=== PATIENT | male | born 1965 | race Caucasian/White ===

== ENCOUNTER 2017-07-02 17:02 | Inpatient (IN) | payer OTHER ==
[~2017-07-02 17:02] MED LIST: THIAMINE 100 MG TAB PO SCH
[2017-07-02] MEDS ORDERED: LORazepam 2 MG/ML INJ IV STA ×2 (17:32→19:45)
[2017-07-02] MEDS ORDERED: SODIUM CHLORIDE 0.9% 1,000 ML IV STA ×2 (17:32)
[2017-07-02 17:56] LABS: ALT 57 U/L (21-72); AST 91 U/L (17-59); Alkaline Phosphatase 115 U/L (38-126); Amylase 57 U/L (30-110); Anion Gap 8 mmol/L; Blood Urea Nitrogen 18 mg/dL (9-20); Calcium 9.8 mg/dL (8.4-10.2); Carbon Dioxide 27 mmol/L (22-30); Chloride 102 mmol/L (98-107); Glucose 115 mg/dL (74-99); Non-African American GFR(MDRD) >60 (>60 ml/min/1.73 sqM); Sodium 137 mmol/L (137-145); Total Bilirubin 1.3 mg/dL (0.2-1.3); Total Protein 6.2 g/dL (6.3-8.2)
[2017-07-02 18:00] LABS: Basophils % (A) 1 %; CH 33.9; Eosinophils % (A) 2 %; HCT 39.6 % (39.0-53.0); HDW 2.32; HGB 13.8 gm/dL (13.0-17.5); Large Platelets Flag Slight; Luc # (Auto) 0.07; Luc % (Auto) 2; Lymphocytes % (A) 35 %; MCH 34.8 pg (25.0-35.0); MCHC 34.9 g/dL (31.0-37.0); Mean Platelet Volume 10.9; Monocytes # (A) 0.2 k/uL (0-1.0); Monocytes % (A) 6 %; Neutrophils # (A) 1.5 k/uL (1.3-7.7); Neutrophils % (A) 55 %; RBC 3.96 m/uL (4.30-5.90); RDW 13.3 % (11.5-15.5); WBC 2.8 k/uL (3.8-10.6); WBC (Perox) 2.85
[2017-07-02 18:03] LABS: Prothrombin Time 10.2 sec (9.0-12.0)
[2017-07-02] MEDS ORDERED: POTASSIUM CHLORIDE ER 20 MEQ TAB.ER PO STA (18:27)
--- NOTE | 2017-07-02 19:45 | ED ---
General Adult HPI - General Chief complaint: Alcohol Stated complaint: Detox Time Seen by Provider: 07/02/17 17:32 Source: EMS Mode of arrival: EMS Limitations: language barrier - History of Present Illness Initial comments: This 51-year-old male presents with alcohol withdrawal. He presents from [facility]. They apparently sent him here has they were giving him 1-2 mg of Ativan and this was not adequately controlling his withdrawal symptoms. He apparently was very shaky and unable to ambulate. The patient does not speak very good Yi so there may be a degree of communication barrier. He also may be confused at times. The nurse, however, at times states that he seems to be making decent sense and he does seem to be speaking Yi to them fairly well at times. The patient does not have any complaints at current time. Records relate that he has not had anything to drink in the past 3 days. - Related Data Home Medications Medication Instructions Recorded Confirmed Acetaminophen [Tylenol] 650 mg PO Q4H PRN 07/02/17 07/02/17 Chlorpheniramine Maleate 4 mg PO Q4H PRN 07/02/17 07/02/17 [Chlor-Trimeton] Ibuprofen [Motrin] 600 mg PO Q6HR PRN 07/02/17 07/02/17 LORazepam ORAL CONC [Ativan 1 mg PO ONCE PRN 07/02/17 07/02/17 Intensol] LORazepam ORAL CONC [Ativan 2 mg IM ONCE PRN 07/02/17 07/02/17 Intensol] Multivitamins, Thera [Multivitamin 1 tab PO DAILY 07/02/17 07/02/17 (formulary)] Thiamine [Vitamin B-1] 100 mg PO DAILY 07/02/17 07/02/17 cloNIDine HCL [Catapres] 0.1 - 0.3 mg PO Q4H PRN 07/02/17 07/02/17 traZODone HCL 50 - 150 mg PO HS 07/02/17 07/02/17 Allergies Allergy/AdvReac Type Severity Reaction Status Date / Time No Known Allergies Allergy Verified 07/02/17 17:17 Review of Systems ROS Statement: Those systems with pertinent positive or pertinent negative responses have been documented in the HPI. ROS Other: All systems not noted in ROS Statement are negative. Past Medical History Past Medical History: No Reported History History of Any Multi-Drug Resistant Organisms: None Reported Past Surgical History: No Surgical Hx Reported Past Psychological History: No Psychological Hx Reported Smoking Status: Never smoker Past Alcohol Use History: None Reported Past Drug Use History: None Reported General Exam - General Exam Comments Initial Comments: GENERAL: The patient is well nourished and well hydrated. VITAL SIGNS: Heart rate, blood pressure, respiratory rate reviewed as recorded in nurse's notes. EYES: Pupils are round and reactive. Extraocular movements are intact. No conjunctival / lid redness or swelling. ENT: No external evidence of injury, swelling, or ecchymosis. Airway is patent. Throat is clear. NECK: Nontender. No swelling or evidence of injury. No subcutaneous emphysema. Trachea is midline. No thyroid mass. HEART: Regular rate and rhythm. Good peripheral pulses. LUNGS/CHEST: Breath sounds clear and equal bilaterally. No rales, rhonchi, or wheezes. No ecchymosis, subcutaneous emphysema, or tenderness. ABDOMEN: Abdomen soft without tenderness. No palpable masses or organomegaly. No peritoneal signs. No abdominal wall swelling or ecchymosis. EXTREMITIES: No extremity tenderness. Normal muscle tone and function. No thoracolumbar tenderness. NEUROLOGIC: Sensation is grossly intact. Cranial nerve exam reveals face is symmetrical, tongue is midline, speech is clear. The patient is fairly shaky with extremities. SKIN: No abrasions or ecchymosis is noted. No induration or masses noted. PSYCHIATRIC: Alert and in no apparent distress. Limitations: language barrier Course Vital Signs 07/02/17 07/02/17 17:09 17:50 Temperature 98.2 F Pulse Rate 76 71 Respiratory 18 18 Rate Blood Pressure 160/99 162/112 O2 Sat by Pulse 98 98 Oximetry Medical Decision Making - Medical Decision Making The patient was seen and examined. All diagnostics were reviewed. The EKG shows a normal sinus rhythm at a rate of 71. There is some nonspecific ST-T wave changes noted primarily in the inferolateral leads. The NH interval is 144 , the QRS duration is 88, and the QTc interval is 471. The patient's lab reveals a thrombocytopenia as well as a hypokalemia. He does receive an IV with 2 mg of Ativan intravenously given. He does seem somewhat confused at times. An additional 2 mg of Ativan is ordered. It is felt as well he may be having some delirium tremens. The case is discussed with internal medicine and they're agreeable to admission. - Lab Data Result diagrams: 07/02/17 17:30 07/02/17 17:30 Lab Results 07/02/17 07/02/17 07/02/17 Range/Units 17:30 17:30 17:30 WBC 2.8 L (3.8-10.6) k/uL RBC 3.96 L (4.30-5.90) m/uL Hgb 13.8 (13.0-17.5) gm/dL Hct 39.6 (39.0-53.0) % MCV 100.0 (80.0-100.0) fL MCH 34.8 (25.0-35.0) pg MCHC 34.9 (31.0-37.0) g/dL RDW 13.3 (11.5-15.5) % Plt Count 38 L* (150-450) k/uL Neutrophils % 55 % Lymphocytes % 35 % Monocytes % 6 % Eosinophils % 2 % Basophils % 1 % Neutrophils # 1.5 (1.3-7.7) k/uL Lymphocytes # 1.0 (1.0-4.8) k/uL Monocytes # 0.2 (0-1.0) k/uL Eosinophils # 0.0 (0-0.7) k/uL Basophils # 0.0 (0-0.2) k/uL PT 10.2 (9.0-12.0) sec INR 1.0 (<1.2) Sodium 137 (137-145) mmol/L Potassium 3.0 L* (3.5-5.1) mmol/L Chloride 102 (98-107) mmol/L Carbon Dioxide 27 (22-30) mmol/L Anion Gap 8 mmol/L BUN 18 (9-20) mg/dL Creatinine 0.50 L (0.66-1.25) mg/dL Est GFR (MDRD) Af Amer >60 (>60 ml/min/1.73 sqM) Est GFR (MDRD) Non-Af >60 (>60 ml/min/1.73 sqM) Glucose 115 H (74-99) mg/dL Calcium 9.8 (8.4-10.2) mg/dL Total Bilirubin 1.3 (0.2-1.3) mg/dL AST 91 H (17-59) U/L ALT 57 (21-72) U/L Alkaline Phosphatase 115 (38-126) U/L Total Protein 6.2 L (6.3-8.2) g/dL Albumin 3.8 (3.5-5.0) g/dL Amylase 57 (30-110) U/L Lipase 308 H (23-300) U/L Disposition Clinical Impression: Alcohol withdrawal delirium, Delirium tremens, Alcohol withdrawal syndrome, Thrombocytopenia, Hypokalemia Disposition: ADMITTED IP TO THIS HOSP Condition: Fair Time of Disposition: 19:50 Decision Date: 07/02/17 Decision Time: 19:50
[2017-07-02] MEDS ORDERED: THIAMINE 100 MG/ML 2 ML VIAL IM STA (19:51)
[2017-07-02] MEDS ORDERED: LORazepam 2 MG/ML INJ IV PRN (19:51)
[2017-07-02] MEDS ORDERED: NALOXONE 0.4 MG/ML 1 ML VIAL IV PRN (19:51)
[2017-07-02] MEDS ORDERED: ONDANSETRON 4 MG/2 ML VIAL IVP PRN (19:51)
[2017-07-02] MEDS ORDERED: ACETAMINOPHEN TAB 325 MG TAB PO PRN (19:54)
[2017-07-02] MEDS ORDERED: diphenhydrAMINE 25 MG CAP PO PRN (19:54)
[2017-07-02] MEDS: cloNIDine HCL 0.1 MG TAB PO PRN (20:17)
[2017-07-02] MEDS: traZODone HCL 50 MG TAB PO SCH (21:22)
[2017-07-02] MEDS: LORazepam 2 MG/ML INJ IV PRN (23:49)
[2017-07-03] MEDS: LORazepam 2 MG/ML INJ IV PRN ×5 (03:03→21:01)
[2017-07-03] MEDS: ENOXAPARIN 40 MG/0.4 ML SYRINGE SQ SCH (08:01)
[2017-07-03] MEDS: PANTOPRAZOLE 40 MG/10 ML VIAL IV SCH (08:02)
[2017-07-03 08:50] LABS: Basophils % (A) 0 %; CH 33.3; CHCM 32.7; Eosinophils % (A) 2 %; HCT 41.8 % (39.0-53.0); HDW 2.39; HGB 14.1 gm/dL (13.0-17.5); Luc # (Auto) 0.08; Luc % (Auto) 4; Lymphocytes # (A) 0.7 k/uL (1.0-4.8); Lymphocytes % (A) 34 %; MCH 34.4 pg (25.0-35.0); MCHC 33.7 g/dL (31.0-37.0); MCV 102.2 fL (80.0-100.0); Macrocytosis Slight; Mean Platelet Volume 9.8; Monocytes # (A) 0.2 k/uL (0-1.0); Monocytes % (A) 7 %; Neutrophils # (A) 1.2 k/uL (1.3-7.7); Neutrophils % (A) 54 %; RBC 4.09 m/uL (4.30-5.90); RDW 13.1 % (11.5-15.5); WBC 2.2 k/uL (3.8-10.6)
[2017-07-03 08:55] LABS: Anion Gap 12 mmol/L; Blood Urea Nitrogen 9 mg/dL (9-20); Calcium 9.4 mg/dL (8.4-10.2); Carbon Dioxide 24 mmol/L (22-30); Chloride 103 mmol/L (98-107); Glucose 80 mg/dL (74-99); Non-African American GFR(MDRD) >60 (>60 ml/min/1.73 sqM); Potassium 3.4 mmol/L (3.5-5.1); Sodium 139 mmol/L (137-145)
[2017-07-03] MEDS: THIAMINE 100 MG TAB PO SCH ×2 (11:55→17:44)
[2017-07-03] MEDS: traZODone HCL 50 MG TAB PO SCH (20:54)
--- NOTE | 2017-07-03 23:16 | P.HPIM ---
History of Present Illness H&P Date: 07/03/17 Chief Complaint: Acute alcohol withdrawal symptoms This 51-year-old male with a known history of alcohol abuse presents ER with alcohol withdrawal symptoms.. He presents from [facility]. They apparently sent him here has they were giving him 1-2 mg of Ativan and this was not adequately controlling his withdrawal symptoms. He apparently was very shaky and unable to ambulate. The patient does not speak very good Pashto so there may be a degree of communication barrier. He is also confused at times. The patient does not have any complaints at current time. Records relate that he has not had anything to drink in the past 3 days. Complete history could not be obtained from the patient. Review of systems could not be obtained from the patient Past Medical History Past Medical History: No Reported History Additional Past Medical History / Comment(s): restless leg syndrome, ETOH- drinks fifth of vodka per day History of Any Multi-Drug Resistant Organisms: None Reported Past Surgical History: No Surgical Hx Reported Past Anesthesia/Blood Transfusion Reactions: No Reported Reaction Past Psychological History: No Psychological Hx Reported Smoking Status: Current every day smoker Past Alcohol Use History: Daily Past Drug Use History: None Reported - Past Family History Mother Family Medical History: No Reported History Medications and Allergies Home Medications Medication Instructions Recorded Confirmed Type Acetaminophen [Tylenol] 650 mg PO Q4H PRN 07/02/17 07/02/17 History Chlorpheniramine Maleate 4 mg PO Q4H PRN 07/02/17 07/02/17 History [Chlor-Trimeton] Ibuprofen [Motrin] 600 mg PO Q6HR PRN 07/02/17 07/02/17 History LORazepam ORAL CONC [Ativan 1 mg PO ONCE PRN 07/02/17 07/02/17 History Intensol] LORazepam ORAL CONC [Ativan 2 mg IM ONCE PRN 07/02/17 07/02/17 History Intensol] Multivitamins, Thera [Multivitamin 1 tab PO DAILY 07/02/17 07/02/17 History (formulary)] Thiamine [Vitamin B-1] 100 mg PO DAILY 07/02/17 07/02/17 History cloNIDine HCL [Catapres] 0.1 - 0.3 mg PO Q4H PRN 07/02/17 07/02/17 History traZODone HCL 50 - 150 mg PO HS 07/02/17 07/02/17 History Allergies Allergy/AdvReac Type Severity Reaction Status Date / Time No Known Allergies Allergy Verified 07/02/17 17:17 Physical Exam Vitals: Vital Signs Temp Pulse Pulse Resp BP BP Pulse Ox 07/03/17 07:00 98.2 F 68 16 154/104 98 07/02/17 22:00 96.7 F L 70 20 140/107 98 07/02/17 20:38 98.0 F 72 18 159/99 99 07/02/17 20:09 98.1 F 76 18 159/109 97 07/02/17 19:00 74 20 100 07/02/17 18:00 98.0 F 71 16 158/100 99 07/02/17 17:50 71 18 162/112 98 07/02/17 17:09 98.2 F 76 18 160/99 98 Intake and Output 07/02/17 07/03/17 07/03/17 22:59 06:59 14:59 Intake Total 100 100 Balance 100 100 Intake: Oral 100 100 Other: Voiding Method Urinal # Voids 2 1 Weight 58.967 kg 67.5 kg PHYSICAL EXAMINATION: Patient is lying in the bed comfortably, no acute distress, confused and wobbling. HEENT: Normocephalic. Neck is supple. Pupils reactive. Nostrils clear. Oral cavity is moist. Ears reveal no drainage. Neck reveals no JVD, carotid bruits, or thyromegaly. CHEST EXAMINATION: Trachea is central. Symmetrical expansion. Lung william clear to auscultation and percussion. CARDIAC: Normal S1, S2 with no gallops. No murmurs ABDOMEN: Soft. Bowel sounds normal. No organomegaly. No abdominal bruits. Extremities reveal no edema. No clubbing or cyanosis Neurologically awake, alert. Confused. No focal neurological deficit noted. Skin: no rash or skin lesions Musculoskeletal: no joint swelling or deformity. Results CBC & Chem 7: 07/03/17 07:53 07/03/17 07:53 Labs: Abnormal Lab Results - Last 24 Hours (Table) 07/02/17 07/02/17 07/03/17 Range/Units 17:30 17:30 07:53 WBC 2.8 L 2.2 L (3.8-10.6) k/uL RBC 3.96 L 4.09 L (4.30-5.90) m/uL MCV 102.2 H (80.0-100.0) fL Plt Count 38 L* 37 L* (150-450) k/uL Neutrophils # 1.2 L (1.3-7.7) k/uL Lymphocytes # 0.7 L (1.0-4.8) k/uL Potassium 3.0 L* (3.5-5.1) mmol/L Creatinine 0.50 L (0.66-1.25) mg/dL Glucose 115 H (74-99) mg/dL AST 91 H (17-59) U/L Total Protein 6.2 L (6.3-8.2) g/dL Lipase 308 H (23-300) U/L 07/03/17 Range/Units 07:53 WBC (3.8-10.6) k/uL RBC (4.30-5.90) m/uL MCV (80.0-100.0) fL Plt Count (150-450) k/uL Neutrophils # (1.3-7.7) k/uL Lymphocytes # (1.0-4.8) k/uL Potassium 3.4 L (3.5-5.1) mmol/L Creatinine 0.49 L (0.66-1.25) mg/dL Glucose (74-99) mg/dL AST (17-59) U/L Total Protein (6.3-8.2) g/dL Lipase (23-300) U/L Thrombosis Risk Factor Assmnt - DVT/VTE Prophylaxis DVT/VTE Prophylaxis: Mechanical Prophylaxis ordered - Choose All That Apply Any of the Below Risk Factors Present?: Yes Each Factor Represents 1 point: Age 41-60 years Other Risk Factors: No Other congenital or acquired thrombophilia - If yes, enter type in comment: No Thrombosis Risk Factor Assessment Total Risk Factor Score: 1 Thrombosis Risk Factor Assessment Level: Low Risk Assessment and Plan Plan: #1 acute alcohol withdrawal symptoms #2 alcohol abuse 1/5 of alcohol per day #3 neutropenia and thrombocytopenia due to alcohol abuse #4 severe hypokalemia. #5 mild pancreatitis acute. #6 DVT prophylaxis. SCDs due to thrombocytopenia less than 50 K Plan: Patient will be continued on IV hydration and continue with Ativan when necessary for withdrawal symptoms. Continue with thiamine and multivitamins and follow closely. Replace electrolytes. Continue with symptomatic management and further recommendations based on the clinical course. Time with Patient: Greater than 30
[2017-07-04] MEDS: LORazepam 2 MG/ML INJ IV PRN ×4 (02:23→21:21)
[2017-07-04] MEDS: ENOXAPARIN 40 MG/0.4 ML SYRINGE SQ SCH ×2 (07:38→07:39)
[2017-07-04] MEDS: PANTOPRAZOLE 40 MG/10 ML VIAL IV SCH (07:38)
[2017-07-04 09:46] LABS: Basophils % (A) 1 %; CH 33.5; CHCM 32.8; Eosinophils # (A) 0.1 k/uL (0-0.7); Eosinophils % (A) 3 %; HCT 43.4 % (39.0-53.0); HDW 2.46; HGB 14.4 gm/dL (13.0-17.5); Large Platelets Flag Slight; Luc # (Auto) 0.08; Luc % (Auto) 3; Lymphocytes # (A) 0.7 k/uL (1.0-4.8); Lymphocytes % (A) 29 %; MCH 34.1 pg (25.0-35.0); MCHC 33.3 g/dL (31.0-37.0); MCV 102.5 fL (80.0-100.0); Macrocytosis Slight; Mean Platelet Volume 10.6; Monocytes # (A) 0.2 k/uL (0-1.0); Monocytes % (A) 8 %; Neutrophils # (A) 1.4 k/uL (1.3-7.7); Neutrophils % (A) 57 %; RBC 4.23 m/uL (4.30-5.90); RDW 13.3 % (11.5-15.5); WBC 2.5 k/uL (3.8-10.6); WBC (Perox) 2.52
[2017-07-04 09:52] LABS: Anion Gap 21 mmol/L; Blood Urea Nitrogen 14 mg/dL (9-20); Calcium 9.5 mg/dL (8.4-10.2); Carbon Dioxide 17 mmol/L (22-30); Chloride 103 mmol/L (98-107); Glucose 73 mg/dL (74-99); Non-African American GFR(MDRD) >60 (>60 ml/min/1.73 sqM); Potassium 3.3 mmol/L (3.5-5.1); Sodium 141 mmol/L (137-145)
[2017-07-04] MEDS: THIAMINE 100 MG TAB PO SCH ×2 (11:15→17:33)
[2017-07-04] MEDS: traZODone HCL 50 MG TAB PO SCH (21:19)
--- NOTE | 2017-07-05 00:04 | P.PN ---
Subjective Principal diagnosis: Acute alcohol withdrawal symptoms This 51-year-old male with a known history of alcohol abuse presents ER with alcohol withdrawal symptoms.. He presents from [facility]. They apparently sent him here has they were giving him 1-2 mg of Ativan and this was not adequately controlling his withdrawal symptoms. He apparently was very shaky and unable to ambulate. The patient does not speak very good Martiniquais so there may be a degree of communication barrier. He is also confused at times. The patient does not have any complaints at current time. Records relate that he has not had anything to drink in the past 3 days. Complete history could not be obtained from the patient. Review of systems could not be obtained from the patient On 07/04/2017 Patient is more awake and oriented today. Patient was visited this morning and received Ativan IV. Patient is a poor historian due to language barrier. Overall clinically improved. No fever no chills. No complaints of chest pain or short of breath. Current medications reviewed. Objective - Vital Signs Vital signs: Vital Signs Temp 97.8 F 07/04/17 15:00 Pulse 68 07/04/17 15:00 Resp 20 07/04/17 15:00 BP 148/107 07/04/17 15:00 Pulse Ox 98 07/04/17 15:00 Intake & Output 07/04/17 07/04/17 07/05/17 06:59 18:59 06:59 Other: # Voids 1 1 1 - Exam Patient is lying in the bed comfortably, no acute distress, more oriented compared to yesterday. HEENT: Normocephalic. Neck is supple. Pupils reactive. Nostrils clear. Oral cavity is moist. Ears reveal no drainage. Neck reveals no JVD, carotid bruits, or thyromegaly. CHEST EXAMINATION: Trachea is central. Symmetrical expansion. Lung william clear to auscultation and percussion. CARDIAC: Normal S1, S2 with no gallops. No murmurs ABDOMEN: Soft. Bowel sounds normal. No organomegaly. No abdominal bruits. Extremities reveal no edema. No clubbing or cyanosis Neurologically awake, alert. . No focal neurological deficit noted. Patient does have essential tremors. Skin: no rash or skin lesions Musculoskeletal: no joint swelling or deformity - Labs CBC & Chem 7: 07/04/17 08:54 07/04/17 08:54 Labs: Abnormal Lab Results - Last 24 Hours (Table) 07/04/17 07/04/17 Range/Units 08:54 08:54 WBC 2.5 L (3.8-10.6) k/uL RBC 4.23 L (4.30-5.90) m/uL MCV 102.5 H (80.0-100.0) fL Plt Count 40 L* (150-450) k/uL Lymphocytes # 0.7 L (1.0-4.8) k/uL Potassium 3.3 L (3.5-5.1) mmol/L Carbon Dioxide 17 L (22-30) mmol/L Creatinine 0.59 L (0.66-1.25) mg/dL Glucose 73 L (74-99) mg/dL Assessment and Plan Plan: #1 acute alcohol withdrawal symptoms #2 severe alcohol abuse 1/5 of alcohol per day #3 neutropenia and thrombocytopenia due to alcohol abuse. improving #4 severe hypokalemia. #5 mild pancreatitis acute. #6 DVT prophylaxis. SCDs due to thrombocytopenia less than 50 K Plan: Patient will be continued on IV hydration and continue with Ativan when necessary for withdrawal symptoms. Continue with thiamine and multivitamins and follow closely. Replace electrolytes. Continue with symptomatic management and further recommendations based on the clinical course.
[2017-07-05] MEDS: LORazepam 2 MG/ML INJ IV PRN ×2 (03:01→09:50)
[2017-07-05] MEDS: PANTOPRAZOLE 40 MG TABLET PO SCH (09:09)
[2017-07-05] MEDS: ENOXAPARIN 40 MG/0.4 ML SYRINGE SQ SCH (09:09)
[2017-07-05] MEDS: cloNIDine HCL 0.1 MG TAB PO PRN (09:51)
[2017-07-05] MEDS: THIAMINE 100 MG TAB PO SCH ×2 (13:13→18:31)
[2017-07-05] MEDS: traZODone HCL 50 MG TAB PO SCH (20:47)
[2017-07-06] MEDS: LORazepam 2 MG/ML INJ IV PRN ×3 (03:49→14:41)
[2017-07-06] MEDS: cloNIDine HCL 0.1 MG TAB PO PRN (09:09)
[2017-07-06] MEDS: PANTOPRAZOLE 40 MG TABLET PO SCH (09:10)
[2017-07-06 09:11] LABS: Basophils % (A) 1 %; CH 33.8; CHCM 32.4; Eosinophils # (A) 0.1 k/uL (0-0.7); Eosinophils % (A) 3 %; HCT 43.3 % (39.0-53.0); HDW 2.49; HGB 14.3 gm/dL (13.0-17.5); Luc # (Auto) 0.12; Luc % (Auto) 4; Lymphocytes # (A) 1.1 k/uL (1.0-4.8); Lymphocytes % (A) 35 %; MCH 34.5 pg (25.0-35.0); MCV 104.5 fL (80.0-100.0); Macrocytosis Slight; Mean Platelet Volume 9.3; Monocytes # (A) 0.2 k/uL (0-1.0); Monocytes % (A) 7 %; Neutrophils # (A) 1.6 k/uL (1.3-7.7); Neutrophils % (A) 51 %; RBC 4.14 m/uL (4.30-5.90); RDW 13.1 % (11.5-15.5); WBC 3.1 k/uL (3.8-10.6); WBC (Perox) 3.15
[2017-07-06] MEDS: ENOXAPARIN 40 MG/0.4 ML SYRINGE SQ SCH (09:13)
[2017-07-06 09:29] LABS: Anion Gap 13 mmol/L; Blood Urea Nitrogen 22 mg/dL (9-20); Calcium 10.1 mg/dL (8.4-10.2); Carbon Dioxide 20 mmol/L (22-30); Chloride 107 mmol/L (98-107); Glucose 102 mg/dL (74-99); Non-African American GFR(MDRD) >60 (>60 ml/min/1.73 sqM); Potassium 3.3 mmol/L (3.5-5.1); Sodium 140 mmol/L (137-145)
[2017-07-06] MEDS: THIAMINE 100 MG TAB PO SCH ×2 (13:02→17:13)
[2017-07-06] MEDS ORDERED: cloNIDine 0.1 MG/24HR PATCH 1 PATCH PATCH TRANSDERM SCH (21:00)
[2017-07-06] MEDS: traZODone HCL 50 MG TAB PO SCH (21:10)
[2017-07-07] MEDS: PANTOPRAZOLE 40 MG TABLET PO SCH (10:00)
[2017-07-07] MEDS: ENOXAPARIN 40 MG/0.4 ML SYRINGE SQ SCH (10:00)
[2017-07-07] MEDS: THIAMINE 100 MG TAB PO SCH ×2 (10:00→18:18)
[2017-07-07] MEDS: NICOTINE 21MG/24HR PATCH TRANSDERM SCH (10:02)
[2017-07-07] MEDS: LORazepam 2 MG/ML INJ IV PRN (10:10)
[2017-07-07] MEDS: IBUPROFEN 600 MG TAB PO PRN ×2 (10:10→20:44)
[2017-07-07] MEDS: cloNIDine HCL 0.1 MG TAB PO PRN (15:23)
[2017-07-07] MEDS: traZODone HCL 50 MG TAB PO SCH (20:45)
--- NOTE | 2017-07-08 00:19 | P.PN ---
Subjective Principal diagnosis: Acute alcohol withdrawal symptoms This 51-year-old male with a known history of alcohol abuse presents ER with alcohol withdrawal symptoms.. He presents from [facility]. They apparently sent him here has they were giving him 1-2 mg of Ativan and this was not adequately controlling his withdrawal symptoms. He apparently was very shaky and unable to ambulate. The patient does not speak very good Mauritanian so there may be a degree of communication barrier. He is also confused at times. The patient does not have any complaints at current time. Records relate that he has not had anything to drink in the past 3 days. Complete history could not be obtained from the patient. Review of systems could not be obtained from the patient On 07/04/2017 Patient is more awake and oriented today. Patient was visited this morning and received Ativan IV. Patient is a poor historian due to language barrier. Overall clinically improved. No fever no chills. No complaints of chest pain or short of breath. 07/07/2017 Patient is awake and alert. Tolerating diet slowly. Still lethargic. Patient didn't require Ativan IV this morning. Otherwise frequency decreased. No fever no chills. No acute overnight issues. Current medications reviewed. Objective - Vital Signs Vital signs: Vital Signs Temp 98.6 F 07/07/17 14:47 Pulse 69 07/07/17 14:47 Resp 16 07/07/17 15:24 BP 152/99 07/07/17 14:47 Pulse Ox 97 07/07/17 14:47 Intake & Output 07/07/17 07/07/17 07/08/17 06:59 18:59 06:59 Intake Total 400 Output Total 975 Balance 400 -975 Intake: Oral 400 Output: Urine 975 Other: Voiding Method Diaper # Voids 2 1 # Bowel Movements 0 - Exam Patient is lying in the bed comfortably, no acute distress, more oriented compared to yesterday. HEENT: Normocephalic. Neck is supple. Pupils reactive. Nostrils clear. Oral cavity is moist. Ears reveal no drainage. Neck reveals no JVD, carotid bruits, or thyromegaly. CHEST EXAMINATION: Trachea is central. Symmetrical expansion. Lung william clear to auscultation and percussion. CARDIAC: Normal S1, S2 with no gallops. No murmurs ABDOMEN: Soft. Bowel sounds normal. No organomegaly. No abdominal bruits. Extremities reveal no edema. No clubbing or cyanosis Neurologically awake, alert. . No focal neurological deficit noted. Patient does have essential tremors. Skin: no rash or skin lesions Musculoskeletal: no joint swelling or deformity - Labs CBC & Chem 7: 07/06/17 08:46 07/06/17 08:46 Assessment and Plan Plan: #1 acute alcohol withdrawal symptoms #2 severe alcohol abuse 1/5 of alcohol per day #3 neutropenia and thrombocytopenia due to alcohol abuse. improving #4 severe hypokalemia. Replaced #5 mild pancreatitis acute. #6 DVT prophylaxis. SCDs due to thrombocytopenia less than 50 K Plan: Patient will be continued on IV hydration and continue with Ativan when necessary for withdrawal symptoms. Continue with thiamine and multivitamins and follow closely. Replace electrolytes. PT OT and increase oral intake. Continue with symptomatic management and further recommendations based on the clinical course.
[2017-07-08] MEDS: SODIUM CHLORIDE 0.9% 1,000 ML IV SCH ×3 (05:58→15:36)
[2017-07-08 09:49] LABS: Basophils % (A) 1 %; CH 35.2; CHCM 35.2; Eosinophils % (A) 2 %; HCT 39.6 % (39.0-53.0); HDW 2.56; HGB 13.4 gm/dL (13.0-17.5); Luc # (Auto) 0.05; Luc % (Auto) 2; Lymphocytes # (A) 0.7 k/uL (1.0-4.8); Lymphocytes % (A) 34 %; MCH 34.1 pg (25.0-35.0); MCHC 33.9 g/dL (31.0-37.0); MCV 100.6 fL (80.0-100.0); Mean Platelet Volume 9.5; Monocytes # (A) 0.2 k/uL (0-1.0); Monocytes % (A) 9 %; Neutrophils # (A) 1.1 k/uL (1.3-7.7); Neutrophils % (A) 52 %; RBC 3.94 m/uL (4.30-5.90); RDW 13.4 % (11.5-15.5); WBC 2.2 k/uL (3.8-10.6); WBC (Perox) 2.17
[2017-07-08 10:03] LABS: Anion Gap 7 mmol/L; Blood Urea Nitrogen 8 mg/dL (9-20); Calcium 9.3 mg/dL (8.4-10.2); Carbon Dioxide 25 mmol/L (22-30); Chloride 104 mmol/L (98-107); Glucose 145 mg/dL (74-99); Non-African American GFR(MDRD) >60 (>60 ml/min/1.73 sqM); Sodium 136 mmol/L (137-145)
[2017-07-08] MEDS: NICOTINE 21MG/24HR PATCH TRANSDERM SCH (10:06)
[2017-07-08] MEDS: ENOXAPARIN 40 MG/0.4 ML SYRINGE SQ SCH (10:06)
[2017-07-08] MEDS: PANTOPRAZOLE 40 MG TABLET PO SCH (10:06)
[2017-07-08 10:24] LABS: Potassium 2.7 mmol/L (3.5-5.1)
[2017-07-08] MEDS ORDERED: Potassium Replacement Protocol 1 EACH MISC MISCELLANE PRN (11:37)
[2017-07-08] MEDS ORDERED: POTASSIUM CHLORIDE ER 20 MEQ TAB.ER PO STA (11:40)
[2017-07-08] MEDS: THIAMINE 100 MG TAB PO SCH ×2 (12:04→16:28)
[2017-07-08] MEDS: POTASSIUM CHLORIDE 10 MEQ in WATER FOR INJECTION 1 100ML.BAG IVPB SCH ×3 (12:05→16:32)
--- NOTE | 2017-07-08 14:07 | XR ---
EXAMINATION TYPE: XR chest 2V DATE OF EXAM: 07/08/2017 COMPARISON: NONE TECHNIQUE: PA and lateral views submitted. HISTORY: ECF placement FINDINGS: The lungs are clear and there is no pneumothorax, pleural effusion, or focal pneumonia. Hypertrophi c and degenerative change spine IMPRESSION: 1. No acute process.
[2017-07-08] MEDS: traZODone HCL 50 MG TAB PO SCH (20:02)
[2017-07-08] MEDS: POTASSIUM CHLORIDE 10 MEQ, LIDOCAINE 2% INJ 10 MG in SODIUM CHLORIDE 0.9% 100 ML IVPB SCH ×2 (21:16→23:13)
--- NOTE | 2017-07-09 00:09 | P.PN ---
Subjective Principal diagnosis: Acute alcohol withdrawal symptoms This 51-year-old male with a known history of alcohol abuse presents ER with alcohol withdrawal symptoms.. He presents from [facility]. They apparently sent him here has they were giving him 1-2 mg of Ativan and this was not adequately controlling his withdrawal symptoms. He apparently was very shaky and unable to ambulate. The patient does not speak very good Spanish so there may be a degree of communication barrier. He is also confused at times. The patient does not have any complaints at current time. Records relate that he has not had anything to drink in the past 3 days. Complete history could not be obtained from the patient. Review of systems could not be obtained from the patient On 07/04/2017 Patient is more awake and oriented today. Patient was visited this morning and received Ativan IV. Patient is a poor historian due to language barrier. Overall clinically improved. No fever no chills. No complaints of chest pain or short of breath. 07/07/2017 Patient is awake and alert. Tolerating diet slowly. Still lethargic. Patient didn't require Ativan IV this morning. Otherwise frequency decreased. No fever no chills. No acute overnight issues. 07/08/2017 Patient is lethargic and unable to ambulate by himself. Patient's progression as well as 2.7 today and is being replaced. Patient is a poor historian otherwise requesting to discharge. We'll consult PTOT and possible rehab. No fever no chills. Slowly tolerating diet. No acute overnight issues. Requiring Ativan sometimes. Current medications reviewed. Objective - Vital Signs Vital signs: Vital Signs Temp 98.7 F 07/08/17 15:00 Pulse 81 07/08/17 15:00 Resp 18 07/08/17 15:00 BP 161/109 07/08/17 15:00 Pulse Ox 99 07/08/17 15:00 Intake & Output 07/08/17 07/08/17 07/09/17 06:59 18:59 06:59 Intake Total 236 Output Total 650 Balance -414 Intake: Oral 236 Output: Urine 650 Other: Voiding Method Diaper Urinal # Voids 2 3 # Bowel Movements 0 - Exam Patient is lying in the bed comfortably, no acute distress, more oriented compared to yesterday. HEENT: Normocephalic. Neck is supple. Pupils reactive. Nostrils clear. Oral cavity is moist. Ears reveal no drainage. Neck reveals no JVD, carotid bruits, or thyromegaly. CHEST EXAMINATION: Trachea is central. Symmetrical expansion. Lung william clear to auscultation and percussion. CARDIAC: Normal S1, S2 with no gallops. No murmurs ABDOMEN: Soft. Bowel sounds normal. No organomegaly. No abdominal bruits. Extremities reveal no edema. No clubbing or cyanosis Neurologically awake, alert. . No focal neurological deficit noted. Patient does have essential tremors. Skin: no rash or skin lesions Musculoskeletal: no joint swelling or deformity - Labs CBC & Chem 7: 07/08/17 09:07/08/17 19:54 Labs: Abnormal Lab Results - Last 24 Hours (Table) 07/08/17 07/08/17 07/08/17 Range/Units 09: 09: 19:54 WBC 2.2 L (3.8-10.6) k/uL RBC 3.94 L (4.30-5.90) m/uL MCV 100.6 H (80.0-100.0) fL Plt Count 95 L (150-450) k/uL Neutrophils # 1.1 L (1.3-7.7) k/uL Lymphocytes # 0.7 L (1.0-4.8) k/uL Sodium 136 L (137-145) mmol/L Potassium 2.7 L* 3.3 L (3.5-5.1) mmol/L BUN 8 L (9-20) mg/dL Creatinine 0.50 L (0.66-1.25) mg/dL Glucose 145 H (74-99) mg/dL Assessment and Plan Plan: #1 acute alcohol withdrawal symptoms #2 severe alcohol abuse 1/5 of alcohol per day #3 neutropenia and thrombocytopenia due to alcohol abuse. improving #4 severe hypokalemia. Replaced #5 mild pancreatitis acute. #6 DVT prophylaxis. SCDs due to thrombocytopenia less than 50 K Plan: Patient will be continued on IV hydration and continue with Ativan when necessary for withdrawal symptoms. Continue with thiamine and multivitamins and follow closely. Replace electrolytes. PT OT and increase oral intake. Continue with symptomatic management and further recommendations based on the clinical course.
[2017-07-09] MEDS: SODIUM CHLORIDE 0.9% 1,000 ML IV SCH ×2 (03:16→07:40)
[2017-07-09] MEDS: PANTOPRAZOLE 40 MG TABLET PO SCH (07:39)
[2017-07-09] MEDS: THIAMINE 100 MG TAB PO SCH ×2 (07:39→15:26)
[2017-07-09] MEDS: NICOTINE 21MG/24HR PATCH TRANSDERM SCH (07:39)
[2017-07-09] MEDS: ENOXAPARIN 40 MG/0.4 ML SYRINGE SQ SCH (07:39)
[2017-07-09] MEDS ORDERED: Magnesium Replacement Protocol 1 EACH MISC MISCELLANE PRN ×2 (11:38→12:19)
[2017-07-09] MEDS ORDERED: Potassium Replacement Protocol 1 EACH MISC MISCELLANE PRN (12:18)
[2017-07-09] MEDS: 0.9% NACL WITH KCL 40 MEQ/L 1,000 ML IV SCH ×2 (12:29→23:51)
[2017-07-09] MEDS: POTASSIUM CHLORIDE 10 MEQ in WATER FOR INJECTION 1 100ML.BAG IVPB SCH ×2 (12:47→13:54)
[2017-07-09] MEDS: MAGNESIUM SULFATE-D5W PMX 1 GM in DEXTROSE/WATER 1 100ML.BAG IVPB SCH ×3 (12:47→15:28)
[2017-07-09 15:07] VITALS: BMI 25.5
--- NOTE | 2017-07-09 18:41 | P.PN ---
Subjective Progress Note being dictated for Dr. Forte Interval history: This 51-year-old male with a known history of alcohol abuse presents ER with alcohol withdrawal symptoms.. He presents from [facility] [facility]. They apparently sent him here has they were giving him 1-2 mg of Ativan and this was not adequately controlling his withdrawal symptoms. He apparently was very shaky and unable to ambulate. The patient does not speak very good Croatian so there may be a degree of communication barrier. He is also confused at times. The patient does not have any complaints at current time. Records relate that he has not had anything to drink in the past 3 days. Complete history could not be obtained from the patient. Review of systems could not be obtained from the patient On 07/04/2017 Patient is more awake and oriented today. Patient was visited this morning and received Ativan IV. Patient is a poor historian due to language barrier. Overall clinically improved. No fever no chills. No complaints of chest pain or short of breath. 07/07/2017 Patient is awake and alert. Tolerating diet slowly. Still lethargic. Patient didn't require Ativan IV this morning. Otherwise frequency decreased. No fever no chills. No acute overnight issues. 07/08/2017 Patient is lethargic and unable to ambulate by himself. Patient's progression as well as 2.7 today and is being replaced. Patient is a poor historian otherwise requesting to discharge. We'll consult PTOT and possible rehab. No fever no chills. Slowly tolerating diet. No acute overnight issues. Requiring Ativan sometimes. 07/09/2017. Did not require any Ativan throughout the night or this morning. Shakiness much improved. Significant improvement. Good diet intake and nausea vomiting or diarrhea. Magnesium 1.3, potassium 3.1 .This morning he had been hypertensive with blood pressures have continued to trend down and currently with systolic in the 140s using only the clonidine patch. Pre-CERT pending for subacute rehab. Objective - Vital Signs Vital signs: Vital Signs Temp 97.4 F L 07/09/17 07:00 Pulse 76 07/09/17 07:00 Resp 16 07/09/17 07:00 BP 156/105 07/09/17 07:00 Pulse Ox 98 07/09/17 07:00 Intake & Output 07/08/17 07/09/17 07/09/17 18:59 06:59 18:59 Intake Total 236 Output Total 650 200 300 Balance -414 -200 -300 Intake: Oral 236 Output: Urine 650 200 300 Other: Voiding Method Urinal Urinal Urinal # Voids 3 1 # Bowel Movements 0 - Exam Patient is sitting up in the bed comfortably, no acute distress, more oriented compared to yesterday. HEENT: Normocephalic. Neck is supple. Pupils reactive. Nostrils clear. Oral cavity is moist. Ears reveal no drainage. Neck reveals no JVD, carotid bruits, or thyromegaly. CHEST EXAMINATION: Trachea is central. Symmetrical expansion. Lung william clear to auscultation and percussion. CARDIAC: Normal S1, S2 with no gallops. No murmurs ABDOMEN: Soft. Bowel sounds normal. No organomegaly. No abdominal bruits. Extremities reveal no edema. No clubbing or cyanosis Neurologically awake, alert. . No focal neurological deficit noted. Patient does have mild essential tremors. Skin: no rash or skin lesions Musculoskeletal: no joint swelling or deformity - Labs CBC & Chem 7: 07/08/17 09:17 07/09/17 09:23 Labs: Abnormal Lab Results - Last 24 Hours (Table) 07/08/17 07/09/17 07/09/17 Range/Units 19:54 09:23 09:23 Potassium 3.3 L 3.1 L (3.5-5.1) mmol/L Magnesium 1.3 L (1.6-2.3) mg/dL Assessment and Plan Plan: #1 acute alcohol withdrawal symptoms #2 severe alcohol abuse 1/5 of alcohol per day #3 neutropenia and thrombocytopenia due to alcohol abuse. improving #4 severe hypokalemia. #5 mild pancreatitis acute. #6 DVT prophylaxis. SCDs due to thrombocytopenia less than 50 K #7 hypomagnesemia Plan: Continue on current medication regime , thiamine, multivitamins, Ativan , Catapres patch, monitoring. Potassium added to IV maintenance fluids. Potassium and magnesium replacement as per protocol as ordered. Recheck potassium and magnesium this afternoon. Discharge planning in progress to subacute rehab pending insurance authorization/pre-CERT pending. The impression and plan of care has been dictated as directed. : I performed a H&P examination of this patient and discussed the same with the dictator. I agree with the dictator's note. Any additional findings/opinions/ etc. will be noted.
[2017-07-09 19:41] LABS: Potassium 3.5 mmol/L (3.5-5.1)
[2017-07-09] MEDS: traZODone HCL 50 MG TAB PO SCH (20:21)
[2017-07-09] MEDS: POTASSIUM CHLORIDE 10 MEQ, LIDOCAINE 2% INJ 10 MG in SODIUM CHLORIDE 0.9% 100 ML IVPB SCH ×2 (20:21→21:47)
[2017-07-10] MEDS: ENOXAPARIN 40 MG/0.4 ML SYRINGE SQ SCH (08:09)
[2017-07-10] MEDS: NICOTINE 21MG/24HR PATCH TRANSDERM SCH (08:09)
[2017-07-10] MEDS: PANTOPRAZOLE 40 MG TABLET PO SCH (08:10)
[2017-07-10] MEDS: 0.9% NACL WITH KCL 40 MEQ/L 1,000 ML IV SCH ×2 (08:10→16:07)
[2017-07-10] MEDS ORDERED: cloNIDine 0.2 MG/24HR PATCH 1 PATCH PATCH TRANSDERM SCH (09:15)
[2017-07-10 09:52] LABS: Magnesium 1.7 mg/dL (1.6-2.3); Potassium 3.7 mmol/L (3.5-5.1)
--- NOTE | 2017-07-10 10:32 | P.DS ---
Providers Date of admission: 07/02/17 19:55 Expected date of discharge: 07/10/17 Attending physician: Thuy Forte Primary care physician: Physician Nonstaff Hospital Course: Final Diagnoses: #1 acute alcohol withdrawal symptoms #2 severe alcohol abuse 1/5 of alcohol per day #3 neutropenia and thrombocytopenia due to alcohol abuse. improving #4 severe hypokalemia. #5 mild pancreatitis acute. #6 DVT prophylaxis. SCDs due to thrombocytopenia less than 50 K #7 hypomagnesemia Hospital course: This is a 51-year-old gentleman admitted with acute alcohol withdrawal/DTs from [facility]. Maintained on IV fluid hydration,CIWA protocol and electrolyte supplementation. Significant clinical improvement. Patient is being discharged to subacute rehab in stable condition with guarded prognosis. The impression and plan of care has been dictated as directed as a scribe. : I performed a H&P examination of this patient and discussed the same with the dictator. I agree with the dictator's note. Any additional findings/opinions/ etc. will be noted. Patient Condition at Discharge: Stable Plan - Discharge Summary New Discharge Prescriptions: New Folic Acid 1 mg PO DAILY #1 tablet Nicotine 21Mg/24Hr Patch [Habitrol] 1 patch TRANSDERM DAILY patch Pantoprazole [Protonix] 40 mg PO AC-BRKFST tab traZODone HCL [Desyrel] 150 mg PO HS tab LORazepam [Ativan] 1 mg PO TID PRN #20 tab PRN Reason: Anxiety cloNIDine 0.2 MG/24HR PATCH [Catapres-TTS] 1 patch TRANSDERM Q7D patch Continue Thiamine [Vitamin B-1] 100 mg PO DAILY Acetaminophen [Tylenol] 650 mg PO Q4H PRN PRN Reason: Fever And/ Or Pain Multivitamins, Thera [Multivitamin (formulary)] 1 tab PO DAILY Discontinued traZODone HCL 50 - 150 mg PO HS cloNIDine HCL [Catapres] 0.1 - 0.3 mg PO Q4H PRN PRN Reason: BP>160/100 Ibuprofen [Motrin] 600 mg PO Q6HR PRN PRN Reason: Pain Chlorpheniramine Maleate [Chlor-Trimeton] 4 mg PO Q4H PRN PRN Reason: Anxiety LORazepam ORAL CONC [Ativan Intensol] 1 mg PO ONCE PRN PRN Reason: Anxiety LORazepam ORAL CONC [Ativan Intensol] 2 mg IM ONCE PRN PRN Reason: Anxiety Discharge Medication List Acetaminophen [Tylenol] 650 mg PO Q4H PRN 07/02/17 [History] Multivitamins, Thera [Multivitamin (formulary)] 1 tab PO DAILY 07/02/17 [History ] Thiamine [Vitamin B-1] 100 mg PO DAILY 07/02/17 [History] Folic Acid 1 mg PO DAILY #1 tablet 07/09/17 [Rx] LORazepam [Ativan] 1 mg PO TID PRN #20 tab 07/09/17 [Rx] Nicotine 21Mg/24Hr Patch [Habitrol] 1 patch TRANSDERM DAILY patch 07/09/17 [Rx] Pantoprazole [Protonix] 40 mg PO AC-BRKFST tab 07/09/17 [Rx] traZODone HCL [Desyrel] 150 mg PO HS tab 07/09/17 [Rx] cloNIDine 0.2 MG/24HR PATCH [Catapres-TTS] 1 patch TRANSDERM Q7D patch [Rx] Follow up Appointment(s)/Referral(s): Pt's own PCP, Dr. Madyson Rust [Other] - 1 Week (after dc from [facility]) pcpdr. at [facility] Pending [Other] - 3 Days Patient Instructions/Handouts: How to Stop Smoking (DC), Abuse of Alcohol (DC) Activity/Diet/Wound Care/Special Instructions: CBC,BMP, Magnesium in 2 days No alcohol. Smoking cessation information provided. Fall precautions, up with assist. Cardiac diet. Discharge Disposition: TRANSFER TO SNF/ECF
[2017-07-10] MEDS: THIAMINE 100 MG TAB PO SCH ×2 (13:08→16:07)
[2017-07-10] MEDS: traZODone HCL 50 MG TAB PO SCH (20:06)
[2017-07-11] MEDS: 0.9% NACL WITH KCL 40 MEQ/L 1,000 ML IV SCH ×2 (03:20→11:54)
[2017-07-11] MEDS: THIAMINE 100 MG TAB PO SCH ×2 (07:51→16:55)
[2017-07-11] MEDS: NICOTINE 21MG/24HR PATCH TRANSDERM SCH (07:51)
[2017-07-11] MEDS: PANTOPRAZOLE 40 MG TABLET PO SCH (07:51)
[2017-07-11] MEDS: ENOXAPARIN 40 MG/0.4 ML SYRINGE SQ SCH (07:52)
--- NOTE | 2017-07-11 15:45 | P.PN ---
Subjective Progress Note being dictated for Dr. Forte Interval history: This 51-year-old male with a known history of alcohol abuse presents ER with alcohol withdrawal symptoms.. He presents from [facility]. They apparently sent him here has they were giving him 1-2 mg of Ativan and this was not adequately controlling his withdrawal symptoms. He apparently was very shaky and unable to ambulate. The patient does not speak very good Egyptian so there may be a degree of communication barrier. He is also confused at times. The patient does not have any complaints at current time. Records relate that he has not had anything to drink in the past 3 days. Complete history could not be obtained from the patient. Review of systems could not be obtained from the patient On 07/04/2017 Patient is more awake and oriented today. Patient was visited this morning and received Ativan IV. Patient is a poor historian due to language barrier. Overall clinically improved. No fever no chills. No complaints of chest pain or short of breath. 07/07/2017 Patient is awake and alert. Tolerating diet slowly. Still lethargic. Patient didn't require Ativan IV this morning. Otherwise frequency decreased. No fever no chills. No acute overnight issues. 07/08/2017 Patient is lethargic and unable to ambulate by himself. Patient's progression as well as 2.7 today and is being replaced. Patient is a poor historian otherwise requesting to discharge. We'll consult PTOT and possible rehab. No fever no chills. Slowly tolerating diet. No acute overnight issues. Requiring Ativan sometimes. 07/09/2017. Did not require any Ativan throughout the night or this morning. Shakiness much improved. Significant improvement. Good diet intake and nausea vomiting or diarrhea. Magnesium 1.3, potassium 3.1 .This morning he had been hypertensive with blood pressures have continued to trend down and currently with systolic in the 140s using only the clonidine patch. Pre-CERT pending for subacute rehab. 07/10/2017 continues to do well, no DTs. No Ativan required. T-max 99.2. Electrolytes supplemented yesterday,currently WNL. Good diet intake Objective - Vital Signs Vital signs: Vital Signs Temp 97.2 F L 07/11/17 14:56 Pulse 69 07/11/17 14:56 Resp 16 07/11/17 14:56 BP 116/72 07/11/17 14:56 Pulse Ox 99 07/11/17 14:56 Intake & Output 07/10/17 07/11/17 07/11/17 18:59 06:59 18:59 Intake Total 1200 Output Total 150 Balance -150 1200 Intake: Oral 1200 Output: Urine 150 Other: Voiding Method Urinal Toilet Toilet # Voids 2 1 2 - Labs CBC & Chem 7: 07/08/17 09:17 07/10/17 08:32 Assessment and Plan Plan: #1 acute alcohol withdrawal symptoms #2 severe alcohol abuse 1/5 of alcohol per day #3 neutropenia and thrombocytopenia due to alcohol abuse. improving #4 severe hypokalemia. #5 mild pancreatitis acute. #6 DVT prophylaxis. SCDs due to thrombocytopenia less than 50 K #7 hypomagnesemia Plan: Continue on current medication regime , thiamine, multivitamins, Ativan , Catapres patch, monitoring. Close monitoring of electrolytes. Discharge planning in progress to subacute rehab pending insurance authorization/pre-CERT pending. The impression and plan of care has been dictated as directed. : I performed a H&P examination of this patient and discussed the same with the dictator. I agree with the dictator's note. Any additional findings/opinions/ etc. will be noted.
--- NOTE | 2017-07-11 15:54 | P.PN ---
Subjective Progress Note being dictated for Dr. Forte Interval history: This 51-year-old male with a known history of alcohol abuse presents ER with alcohol withdrawal symptoms.. He presents from [facility]. They apparently sent him here has they were giving him 1-2 mg of Ativan and this was not adequately controlling his withdrawal symptoms. He apparently was very shaky and unable to ambulate. The patient does not speak very good [place] so there may be a degree of communication barrier. He is also confused at times. The patient does not have any complaints at current time. Records relate that he has not had anything to drink in the past 3 days. Complete history could not be obtained from the patient. Review of systems could not be obtained from the patient On 07/04/2017 Patient is more awake and oriented today. Patient was visited this morning and received Ativan IV. Patient is a poor historian due to language barrier. Overall clinically improved. No fever no chills. No complaints of chest pain or short of breath. 07/07/2017 Patient is awake and alert. Tolerating diet slowly. Still lethargic. Patient didn't require Ativan IV this morning. Otherwise frequency decreased. No fever no chills. No acute overnight issues. 07/08/2017 Patient is lethargic and unable to ambulate by himself. Patient's progression as well as 2.7 today and is being replaced. Patient is a poor historian otherwise requesting to discharge. We'll consult PTOT and possible rehab. No fever no chills. Slowly tolerating diet. No acute overnight issues. Requiring Ativan sometimes. 07/09/2017. Did not require any Ativan throughout the night or this morning. Shakiness much improved. Significant improvement. Good diet intake and nausea vomiting or diarrhea. Magnesium 1.3, potassium 3.1 .This morning he had been hypertensive with blood pressures have continued to trend down and currently with systolic in the 140s using only the clonidine patch. Pre-CERT pending for subacute rehab. 07/10/2017 continues to do well, no DTs. No Ativan required. T-max 99.2. Electrolytes supplemented yesterday,currently WNL. Good diet intake 07/03/2017 awaiting clearance for discharge to subacute rehab. Afebrile. Blood pressure improving. Electrolytes within normal limits. Denies chest pain , palpitations or increasing shortness of breath. Objective - Vital Signs Vital signs: Vital Signs Temp 97.2 F L 07/11/17 14:56 Pulse 69 07/11/17 14:56 Resp 16 07/11/17 14:56 BP 116/72 07/11/17 14:56 Pulse Ox 99 07/11/17 14:56 Intake & Output 07/10/17 07/11/17 07/11/17 18:59 06:59 18:59 Intake Total 1200 Output Total 150 Balance -150 1200 Intake: Oral 1200 Output: Urine 150 Other: Voiding Method Urinal Toilet Toilet # Voids 2 1 2 - Exam Patient is sitting up in bed comfortably, no acute distress, HEENT: Normocephalic. Neck is supple. Pupils reactive. Nostrils clear. Oral cavity is moist. Ears reveal no drainage. Neck reveals no JVD, carotid bruits, or thyromegaly. CHEST EXAMINATION: Trachea is central. Symmetrical expansion. Lung william clear to auscultation and percussion. CARDIAC: Normal S1, S2 with no gallops. No murmurs ABDOMEN: Soft. Bowel sounds normal. No organomegaly. No abdominal bruits. No guarding, no rigidity Extremities reveal no edema. No clubbing or cyanosis Neurologically awake, alert. . No focal neurological deficit noted. Patient does have mild essential tremors. Skin: no rash or skin lesions Musculoskeletal: no joint swelling or deformity - Labs CBC & Chem 7: 07/08/17 09:17 07/10/17 08:32 Assessment and Plan Plan: #1 acute alcohol withdrawal symptoms #2 severe alcohol abuse 1/5 of alcohol per day #3 neutropenia and thrombocytopenia due to alcohol abuse. improving #4 severe hypokalemia. #5 mild pancreatitis acute. #6 DVT prophylaxis. SCDs due to thrombocytopenia less than 50 K #7 hypomagnesemia Plan: Continue on current medication regime , thiamine, multivitamins, Ativan , Catapres patch, monitoring. Increase ambulation as tolerated. Discharge planning in progress to subacute rehab pending insurance authorization/pre-CERT pending. The impression and plan of care has been dictated as directed. : I performed a H&P examination of this patient and discussed the same with the dictator. I agree with the dictator's note. Any additional findings/opinions/ etc. will be noted.
[2017-07-11] MEDS: traZODone HCL 50 MG TAB PO SCH (20:03)
[2017-07-12] MEDS: PANTOPRAZOLE 40 MG TABLET PO SCH (08:25)
[2017-07-12] MEDS: ENOXAPARIN 40 MG/0.4 ML SYRINGE SQ SCH (08:25)
[2017-07-12] MEDS: NICOTINE 21MG/24HR PATCH TRANSDERM SCH (08:26)
[2017-07-12 09:44] LABS: Basophils % (A) 1 %; CH 33.8; CHCM 32.7; Eosinophils # (A) 0.1 k/uL (0-0.7); Eosinophils % (A) 2 %; HCT 39.7 % (39.0-53.0); HDW 2.42; HGB 12.8 gm/dL (13.0-17.5); Luc # (Auto) 0.09; Luc % (Auto) 3; Lymphocytes # (A) 1.2 k/uL (1.0-4.8); Lymphocytes % (A) 34 %; MCH 33.6 pg (25.0-35.0); MCHC 32.4 g/dL (31.0-37.0); MCV 103.7 fL (80.0-100.0); Macrocytosis Slight; Monocytes # (A) 0.3 k/uL (0-1.0); Monocytes % (A) 7 %; Neutrophils % (A) 54 %; RBC 3.83 m/uL (4.30-5.90); RDW 12.7 % (11.5-15.5); WBC 3.7 k/uL (3.8-10.6); WBC (Perox) 3.98
[2017-07-12 10:04] LABS: Anion Gap 10 mmol/L; Blood Urea Nitrogen 19 mg/dL (9-20); Calcium 10.1 mg/dL (8.4-10.2); Carbon Dioxide 25 mmol/L (22-30); Chloride 102 mmol/L (98-107); Glucose 126 mg/dL (74-99); Non-African American GFR(MDRD) >60 (>60 ml/min/1.73 sqM); Potassium 3.8 mmol/L (3.5-5.1); Sodium 137 mmol/L (137-145)
[2017-07-12] MEDS: THIAMINE 100 MG TAB PO SCH ×2 (12:51→17:00)
[2017-07-12 14:53] VITALS: RESP 16; TEMP 98.2
--- NOTE | 2017-07-12 15:43 | P.PN ---
Progress Note - Text 07/12/2017 Please refer to previous discharge summary. Ambulating in hallway, tolerating exertion well, no DTs. Systolic blood pressures in the 150s. Patient is being discharged either home or to subacute rehab today in a stable condition with guarded prognosis. The impression and plan of care has been dictated as directed as a scribe. : I performed a H&P examination of this patient and discussed the same with the dictator. I agree with the dictator's note. Any additional findings/opinions/ etc. will be noted.
[2017-07-12 15:44] VITALS: BP 129/60; PULSE 82
--- NOTE | 2017-08-30 11:15 | P.PN ---
Subjective Progress Note Date: 09/04/17 Principal diagnosis: Acute alcohol withdrawal symptoms This 51-year-old male with a known history of alcohol abuse presents ER with alcohol withdrawal symptoms.. He presents from [facility] [facility]. They apparently sent him here has they were giving him 1-2 mg of Ativan and this was not adequately controlling his withdrawal symptoms. He apparently was very shaky and unable to ambulate. The patient does not speak very good Turkish so there may be a degree of communication barrier. He is also confused at times. The patient does not have any complaints at current time. Records relate that he has not had anything to drink in the past 3 days. Complete history could not be obtained from the patient. Review of systems could not be obtained from the patient On 07/04/2017 Patient is more awake and oriented today. Patient was visited this morning and received Ativan IV. Patient is a poor historian due to language barrier. Overall clinically improved. No fever no chills. No complaints of chest pain or short of breath. 07/05/2017 Patient is awake and alert. Tolerating diet slowly. Still lethargic. Patient didn't require Ativan IV this morning. No fever no chills. No acute overnight issues. Current medications reviewed. Objective - Vital Signs Vital signs: Vital Signs Temp 97.4 F L 07/06/17 07:00 Pulse 56 L 07/06/17 07:00 Resp 16 07/06/17 07:00 BP 154/103 07/06/17 07:50 Pulse Ox 98 07/06/17 07:00 Intake & Output 07/05/17 07/06/17 07/06/17 18:59 06:59 18:59 Intake Total 200 290 Output Total 200 275 Balance -200 200 15 Intake: Oral 200 290 Output: Urine 200 275 Other: Voiding Method Diaper Diaper Diaper # Voids 1 1 - Exam Patient is lying in the bed comfortably, no acute distress, more oriented compared to yesterday. HEENT: Normocephalic. Neck is supple. Pupils reactive. Nostrils clear. Oral cavity is moist. Ears reveal no drainage. Neck reveals no JVD, carotid bruits, or thyromegaly. CHEST EXAMINATION: Trachea is central. Symmetrical expansion. Lung william clear to auscultation and percussion. CARDIAC: Normal S1, S2 with no gallops. No murmurs ABDOMEN: Soft. Bowel sounds normal. No organomegaly. No abdominal bruits. Extremities reveal no edema. No clubbing or cyanosis Neurologically awake, alert. . No focal neurological deficit noted. Patient does have essential tremors. Skin: no rash or skin lesions Musculoskeletal: no joint swelling or deformity - Labs CBC & Chem 7: 07/12/17 09:13 07/12/17 09:13 Labs: Abnormal Lab Results - Last 24 Hours (Table) 07/06/17 07/06/17 Range/Units 08:46 08:46 WBC 3.1 L (3.8-10.6) k/uL RBC 4.14 L (4.30-5.90) m/uL MCV 104.5 H (80.0-100.0) fL Plt Count 70 L D (150-450) k/uL Potassium 3.3 L (3.5-5.1) mmol/L Carbon Dioxide 20 L (22-30) mmol/L BUN 22 H (9-20) mg/dL Creatinine 0.56 L (0.66-1.25) mg/dL Glucose 102 H (74-99) mg/dL Assessment and Plan Plan: #1 acute alcohol withdrawal symptoms #2 severe alcohol abuse 1/5 of alcohol per day #3 neutropenia and thrombocytopenia due to alcohol abuse. improving #4 severe hypokalemia. Replaced #5 mild pancreatitis acute. #6 DVT prophylaxis. SCDs due to thrombocytopenia less than 50 K Plan: Patient will be continued on IV hydration and continue with Ativan when necessary for withdrawal symptoms. Continue with thiamine and multivitamins and follow closely. Replace electrolytes. PT OT and increase oral intake. Continue with symptomatic management and further recommendations based on the clinical course.
--- NOTE | 2017-08-30 11:16 | P.PN ---
Subjective Principal diagnosis: Acute alcohol withdrawal symptoms This 51-year-old male with a known history of alcohol abuse presents ER with alcohol withdrawal symptoms.. He presents from [facility]. They apparently sent him here has they were giving him 1-2 mg of Ativan and this was not adequately controlling his withdrawal symptoms. He apparently was very shaky and unable to ambulate. The patient does not speak very good Malawian so there may be a degree of communication barrier. He is also confused at times. The patient does not have any complaints at current time. Records relate that he has not had anything to drink in the past 3 days. Complete history could not be obtained from the patient. Review of systems could not be obtained from the patient On 07/04/2017 Patient is more awake and oriented today. Patient was visited this morning and received Ativan IV. Patient is a poor historian due to language barrier. Overall clinically improved. No fever no chills. No complaints of chest pain or short of breath. 07/05/2017 Patient is awake and alert. Tolerating diet slowly. Still lethargic. Patient didn't require Ativan IV this morning. No fever no chills. No acute overnight issues. 07/06/2017 Patient is awake and alert. Tolerating diet slowly. Still lethargic. Patient didn't require Ativan IV this morning. No fever no chills. No acute overnight issues. Current medications reviewed. Objective - Vital Signs Vital signs: Vital Signs Temp 96.7 F L 07/06/17 15:00 Pulse 65 07/06/17 15:00 Resp 16 07/06/17 16:00 BP 183/111 07/06/17 15:00 Pulse Ox 97 07/06/17 15:00 Intake & Output 07/06/17 07/06/17 07/07/17 06:59 18:59 06:59 Intake Total 200 290 Output Total 750 Balance 200 -460 Intake: Oral 200 290 Output: Urine 750 Other: Voiding Method Diaper Diaper # Voids 1 - Exam Patient is lying in the bed comfortably, no acute distress, more oriented compared to yesterday. HEENT: Normocephalic. Neck is supple. Pupils reactive. Nostrils clear. Oral cavity is moist. Ears reveal no drainage. Neck reveals no JVD, carotid bruits, or thyromegaly. CHEST EXAMINATION: Trachea is central. Symmetrical expansion. Lung william clear to auscultation and percussion. CARDIAC: Normal S1, S2 with no gallops. No murmurs ABDOMEN: Soft. Bowel sounds normal. No organomegaly. No abdominal bruits. Extremities reveal no edema. No clubbing or cyanosis Neurologically awake, alert. . No focal neurological deficit noted. Patient does have essential tremors. Skin: no rash or skin lesions Musculoskeletal: no joint swelling or deformity - Labs CBC & Chem 7: 07/12/17 09:13 07/12/17 09:13 Labs: Abnormal Lab Results - Last 24 Hours (Table) 07/06/17 07/06/17 Range/Units 08:46 08:46 WBC 3.1 L (3.8-10.6) k/uL RBC 4.14 L (4.30-5.90) m/uL MCV 104.5 H (80.0-100.0) fL Plt Count 70 L D (150-450) k/uL Potassium 3.3 L (3.5-5.1) mmol/L Carbon Dioxide 20 L (22-30) mmol/L BUN 22 H (9-20) mg/dL Creatinine 0.56 L (0.66-1.25) mg/dL Glucose 102 H (74-99) mg/dL Assessment and Plan Plan: #1 acute alcohol withdrawal symptoms #2 severe alcohol abuse 1/5 of alcohol per day #3 neutropenia and thrombocytopenia due to alcohol abuse. improving #4 severe hypokalemia. Replaced #5 mild pancreatitis acute. #6 DVT prophylaxis. SCDs due to thrombocytopenia less than 50 K Plan: Patient will be continued on IV hydration and continue with Ativan when necessary for withdrawal symptoms. Continue with thiamine and multivitamins and follow closely. Replace electrolytes. PT OT and increase oral intake. Continue with symptomatic management and further recommendations based on the clinical course.
== END 2017-07-12 20:36 | disposition home or self-care (01) | DRG 896 ==
LOC: EC 17:02 → 4MS4W 19:55
PROVIDERS: ADMIT Internal Medicine; ATTEND Internal Medicine
DX: F10.231 Alcohol dependence with withdrawal delirium (principal); K85.90 Acute pancreatitis without necrosis or infection, unspecified; D70.9 Neutropenia, unspecified; D69.6 Thrombocytopenia, unspecified; E87.6 Hypokalemia; F17.200 Nicotine dependence, unspecified, uncomplicated; G25.81 Restless legs syndrome; F10.229 Alcohol dependence with intoxication, unspecified; Z79.1 Long term (current) use of non-steroidal anti-inflammatories (NSAID); Z79.899 Other long term (current) drug therapy; Z71.6 Tobacco abuse counseling
CPT/HCPCS: 36415; 71020; 80048; 80053; 82150; 83690; 83735; 84132; 85025; 85610; 93005; 96361; 96372; 96374; 96376; 99285

== ENCOUNTER 2023-01-10 21:23 | Emergency (ER) | payer OTHER ==
[2023-01-10 21:48] VITALS: BP 154/93; PULSE 94; RESP 18
[2023-01-10] MEDS ORDERED: THIAMINE 100 MG/ML 2 ML VIAL IM STA (21:50)
--- NOTE | 2023-01-10 22:06 | ED ---
General Adult HPI - General Chief complaint: Extremity Problem,Nontraumatic Stated complaint: Chest Pain Time Seen by Provider: 01/10/23 21:36 Source: patient, EMS, RN notes reviewed, old records reviewed Mode of arrival: EMS Limitations: no limitations - History of Present Illness Initial comments: 57 -year-old male who presents for evaluation of bilateral lower extremity swelling over the past several days. Reports a heaviness in both legs. Patient does report heavy alcohol consumption but states that he has abstained for the past 2 weeks. He reported to paramedics some chest pain but he states that he does not have any chest pain and is concerned only about his leg swelling. No dyspnea. No fever. - Related Data Home Medications Medication Instructions Recorded Confirmed Acetaminophen [Tylenol] 650 mg PO Q4H PRN 07/02/17 07/02/17 Multivitamins, Thera [Multivitamin 1 tab PO DAILY 07/02/17 07/02/17 (formulary)] Thiamine [Vitamin B-1] 100 mg PO DAILY 07/02/17 07/02/17 Previous Rx's Medication Instructions Recorded Folic Acid 1 mg PO DAILY #1 tablet 07/09/17 LORazepam [Ativan] 1 mg PO TID PRN #20 tab 07/09/17 Nicotine 21Mg/24Hr Patch [Habitrol] 1 patch TRANSDERM DAILY patch 07/09/17 Pantoprazole [Protonix] 40 mg PO AC-BRKFST tab 07/09/17 traZODone HCL [Desyrel] 150 mg PO HS tab 07/09/17 cloNIDine 0.2 MG/24HR PATCH 1 patch TRANSDERM Q7D patch 07/10/17 [Catapres-TTS] Allergies Allergy/AdvReac Type Severity Reaction Status Date / Time No Known Allergies Allergy Verified 07/02/17 17:17 Review of Systems ROS Statement: Those systems with pertinent positive or pertinent negative responses have been documented in the HPI. ROS Other: All systems not noted in ROS Statement are negative. Past Medical History Past Medical History: No Reported History Additional Past Medical History / Comment(s): restless leg syndrome, ETOH- drinks fifth of vodka per day History of Any Multi-Drug Resistant Organisms: None Reported Past Surgical History: No Surgical Hx Reported Past Anesthesia/Blood Transfusion Reactions: No Reported Reaction Past Psychological History: No Psychological Hx Reported Past Alcohol Use History: Daily Past Drug Use History: None Reported - Past Family History Mother Family Medical History: No Reported History General Exam Limitations: no limitations General appearance: alert, in no apparent distress Head exam: Present: atraumatic, normocephalic Eye exam: Present: normal appearance, PERRL ENT exam: Present: normal exam Neck exam: Present: normal inspection. Absent: tenderness, meningismus Respiratory exam: Present: rales, rhonchi. Absent: respiratory distress Cardiovascular Exam: Present: regular rate, normal rhythm GI/Abdominal exam: Present: soft. Absent: distended, tenderness, guarding Extremities exam: Present: tenderness, pedal edema (3+) Neurological exam: Present: alert, oriented X3, CN II-XII intact. Absent: motor sensory deficit Psychiatric exam: Present: normal affect, normal mood Skin exam: Present: warm Course Vital Signs 01/10/23 21:41 Pulse Rate 94 Respiratory 18 Rate Blood Pressure 154/93 O2 Sat by Pulse 100 Oximetry EKG Findings - EKG Comments: EKG Findings:: EKG: Sinus rhythm rate of 88, GA interval 165, QRS duration 107, QTC [address] segment changes Medical Decision Making - Medical Decision Making Patient left AGAINST MEDICAL ADVICE. He is alert and oriented 4. He is c apable of making his own decisions. He refuses further care in the emergency department. We did make multiple attempts to encourage the patient to stay to complete his evaluation. There is concern for new onset heart failure as well as thiamine deficiency. Patient declines any further treatment or evaluation and leaves AGAINST MEDICAL ADVICE. - Lab Data Result diagrams: 01/10/23 21:49 01/10/23 21:49 Lab Results 01/10/23 01/10/23 01/10/23 Range/Units 21:49 21:49 21:49 WBC 4.0 (3.8-10.6) k/uL RBC 3.29 L (4.30-5.90) m/uL Hgb 10.6 L (13.0-17.5) gm/dL Hct 31.8 L (39.0-53.0) % MCV 96.9 (80.0-100.0) fL MCH 32.1 (25.0-35.0) pg MCHC 33.2 (31.0-37.0) g/dL RDW 16.0 H (11.5-15.5) % Plt Count 209 (150-450) k/uL MPV 8.3 Neutrophils % 63 % Lymphocytes % 26 % Monocytes % 7 % Eosinophils % 1 % Basophils % 1 % Neutrophils # 2.5 (1.3-7.7) k/uL Lymphocytes # 1.0 (1.0-4.8) k/uL Monocytes # 0.3 (0-1.0) k/uL Eosinophils # 0.1 (0-0.7) k/uL Basophils # 0.0 (0-0.2) k/uL PT 9.6 (9.0-12.0) sec INR 0.9 (<1.2) APTT 20.3 L (22.0-30.0) sec Sodium 138 (137-145) mmol/L Potassium 4.0 (3.5-5.1) mmol/L Chloride 103 (98-107) mmol/L Carbon Dioxide 28 (22-30) mmol/L Anion Gap 7 mmol/L BUN 16 (9-20) mg/dL Creatinine 0.60 L (0.66-1.25) mg/dL Est GFR (CKD-EPI)AfAm >90 (>60 ml/min/1.73 sqM) Est GFR (CKD-EPI)NonAf >90 (>60 ml/min/1.73 sqM) Glucose 111 H (74-99) mg/dL Calcium 9.9 (8.4-10.2) mg/dL Magnesium 2.0 (1.6-2.3) mg/dL Total Bilirubin 0.4 (0.2-1.3) mg/dL AST 119 H (17-59) U/L ALT 135 H (4-49) U/L Alkaline Phosphatase 93 (38-126) U/L Troponin I (0.000-0.034) ng/mL NT-Pro-B Natriuret Pep pg/mL Total Protein 6.0 L (6.3-8.2) g/dL Albumin 3.5 (3.5-5.0) g/dL 01/10/23 01/10/23 Range/Units 21:49 21:49 WBC (3.8-10.6) k/uL RBC (4.30-5.90) m/uL Hgb (13.0-17.5) gm/dL Hct (39.0-53.0) % MCV (80.0-100.0) fL MCH (25.0-35.0) pg MCHC (31.0-37.0) g/dL RDW (11.5-15.5) % Plt Count (150-450) k/uL MPV Neutrophils % % Lymphocytes % % Monocytes % % Eosinophils % % Basophils % % Neutrophils # (1.3-7.7) k/uL Lymphocytes # (1.0-4.8) k/uL Monocytes # (0-1.0) k/uL Eosinophils # (0-0.7) k/uL Basophils # (0-0.2) k/uL PT (9.0-12.0) sec INR (<1.2) APTT (22.0-30.0) sec Sodium (137-145) mmol/L Potassium (3.5-5.1) mmol/L Chloride (98-107) mmol/L Carbon Dioxide (22-30) mmol/L Anion Gap mmol/L BUN (9-20) mg/dL Creatinine (0.66-1.25) mg/dL Est GFR (CKD-EPI)AfAm (>60 ml/min/1.73 sqM) Est GFR (CKD-EPI)NonAf (>60 ml/min/1.73 sqM) Glucose (74-99) mg/dL Calcium (8.4-10.2) mg/dL Magnesium (1.6-2.3) mg/dL Total Bilirubin (0.2-1.3) mg/dL AST (17-59) U/L ALT (4-49) U/L Alkaline Phosphatase (38-126) U/L Troponin I <0.012 (0.000-0.034) ng/mL NT-Pro-B Natriuret Pep 436 pg/mL Total Protein (6.3-8.2) g/dL Albumin (3.5-5.0) g/dL Disposition Clinical Impression: Peripheral edema Disposition: Left Against Medical Advice Condition: Undetermined Is patient prescribed a controlled substance at d/c from ED?: No Referrals: Nonstaff,Physician [Primary Care Provider] - 1-2 days Time of Disposition: 22:30
--- NOTE | 2023-01-10 22:12 | XR ---
EXAMINATION TYPE: XR chest 2V DATE OF EXAM: 01/10/2023 COMPARISON: 07/08/2017 HISTORY: Placement TECHNIQUE: 2 view FINDINGS: Heart is borderline enlarged. Lungs are clear of infiltrate. No heart failure. There are no hilar masses. Costophrenic angles are clear there are chest leads. No pleural effusion. Bony thorax is intact. IMPRESSION: No active cardiopulmonary disease. Borderline cardiomegaly. No change.
[2023-01-10 22:26] LABS: Basophils % (A) 1 %; Eosinophils # (A) 0.1 k/uL (0-0.7); Eosinophils % (A) 1 %; HCT 31.8 % (39.0-53.0); HGB 10.6 gm/dL (13.0-17.5); Lymphocytes % (A) 26 %; MCH 32.1 pg (25.0-35.0); MCHC 33.2 g/dL (31.0-37.0); MCV 96.9 fL (80.0-100.0); Mean Platelet Volume 8.3; Monocytes # (A) 0.3 k/uL (0-1.0); Monocytes % (A) 7 %; Neutrophils # (A) 2.5 k/uL (1.3-7.7); Neutrophils % (A) 63 %; Platelet Count 209 k/uL (150-450); RBC 3.29 m/uL (4.30-5.90)
[2023-01-10 22:38] LABS: ALT 135 U/L (4-49); AST 119 U/L (17-59); African American GFR (CKD) >90 (>60 ml/min/1.73 sqM); Albumin 3.5 g/dL (3.5-5.0); Alkaline Phosphatase 93 U/L (38-126); Anion Gap 7 mmol/L; Blood Urea Nitrogen 16 mg/dL (9-20); Calcium 9.9 mg/dL (8.4-10.2); Carbon Dioxide 28 mmol/L (22-30); Chloride 103 mmol/L (98-107); Glucose 111 mg/dL (74-99); Non-African American GFR(CKD) >90 (>60 ml/min/1.73 sqM); Sodium 138 mmol/L (137-145); Total Bilirubin 0.4 mg/dL (0.2-1.3)
[2023-01-10 23:16] LABS: INR 0.9 (<1.2); Prothrombin Time 9.6 sec (9.0-12.0)
[2023-01-10 23:47] LABS: Partial Thromboplastin Time 20.3 sec (22.0-30.0)
== END 2023-01-10 22:44 | disposition left against medical advice (07) ==
LOC: EC 21:23
DX: R60.9 Edema, unspecified (principal); Z53.29 Procedure and treatment not carried out because of patient's decision for other reasons
CPT/HCPCS: 36415; 71046; 80053; 83735; 83880; 84484; 85025; 85610; 85730; 93005; 99285